=== PATIENT | female | born 1970 | race Two or more races ===

== ENCOUNTER → 2024-07-21 | Outpatient (CLI) | payer MEDICAID, SELFPAY ==
--- NOTE | 2024-07-21 15:30 | XR_ITS ---
Examination: Breast ultrasound, unilateral, right complete Date and time of exam: July 21, 2024 1349 hours INDICATIONS: Right breast pain intermittent beginning 2 years ago, history right breast cancer diagnosis 2014 post lumpectomy Technique: Real-time ball scale ultrasonographic imaging performed right breast including all 4 quadrants as well as nipple retroareolar and axillary region. Findings: No cystic or solid mass IMPRESSION: BI-RADS Category 1: Negative study Consider repeat diagnostic mammography follow-up,.
== END | disposition home or self-care (01) ==
PROVIDERS: PCP Specialist; Referring Provider Specialist; Visit Provider Specialist
DX: C50.411 Malignant neoplasm of upper-outer quadrant of right female breast (principal)
CPT/HCPCS: 76641

== ENCOUNTER 2024-11-02 11:23 | Emergency (ER) | payer MEDICAID, SELFPAY ==
[2024-11-02 11:34] VITALS: BP 135/75; PULSE 74; RESP 16; TEMP 36.7; O2SAT 100; BMI 23.8
--- NOTE | 2024-11-02 11:41 | XR_ITS ---
Examination: CT middle inner ear, without contrast. 2-D coronal reconstructions. 2-D sagittal reconstructions. Date and time of exam: November 02, 2024 1217 hours INDICATIONS: Left-sided ear pain beginning 2 weeks ago CTDI: vol (mGy): 14 DLP: (mGycm):137 Technique: Multiple 1.0 mm axial sections of the middle inner ears bilaterally. High-resolution 64 slice scanner utilized. 2-D coronal reconstructions 2-D sagittal reconstructions Low dose protocols were performed. One or more of the following dose reduction techniques were used; automated exposure control, adjustment of the mA and/or KV according to patient size, use of iterative reconstruction technique. Findings: Axial sections of the right demonstrate moderately reduced mastoid aeration. Mild acute left mastoiditis Jugular fossa and carotid canal do not appear remarkable. No deformity of the ossicles. Porus acusticus internus does not exhibit erosion. Cochlear apparatus unremarkable. Semicircular canals normal. External auditory canal open. Coronal reconstructions demonstrate no erosion of the scutum. No soft tissue mass in the attic or Prussak's space is seen. Ossicular mass intact. Axial sections of the left demonstrate moderately reduced mastoid aeration. Jugular fossa and carotid canal do not appear remarkable. No deformity of the ossicles. Porus acusticus internus does not exhibit erosion. Cochlear apparatus unremarkable. Semicircular canals normal. External auditory canal open Coronal reconstructions demonstrate no erosion of the scutum. No soft tissue mass in the attic or Prussak's space is seen. Ossicular mass intact. Roof of the mastoid air cells appear intact bilaterally. Impression: Bilateral moderate chronic mastoiditis Mild acute left mastoiditis Negative for otitis media
--- NOTE | 2024-11-02 11:41 | PD.EDRME ---
Rapid Medical Screening Exam [facility] Arrival date/time: 11/02/24 11:23 54-year-old female presents to the emergency dept complaints of left ear pain ongoing x 15 days patient reports been on 2 course of antibiotics patient reports pain persists Chief Complaint: Ear Vital signs: Vital Signs Temperature 98.0 F 11/02/24 11:34 Pulse Rate 74 11/02/24 11:34 Respiratory Rate 16 11/02/24 11:34 Blood Pressure 135/75 H 11/02/24 11:34 Pulse Oximetry (%) 100 11/02/24 11:34 Oxygen Delivery Method Room Air 11/02/24 11:34
[2024-11-02] MEDS: KETOROLAC INJ 30 MG/ML VIAL IM (12:00)
[2024-11-02 12:19] LABS: Basophils % (Auto) 1 % (0-2.5); Eosinophils # (Auto) 0.4 Thou/mm3 (0.0-0.5); Eosinophils % (Auto) 6 % (0-10); Hematocrit 38.2 % (36.0-46.0); Immature Granulocytes % (Auto) 0 % (0-0); Immature Granulocytes Auto 0.01 Thou/mm3 (0.00-0.00); Lymphocytes # (Auto) 2.9 Thou/mm3 (1.0-4.8); Lymphocytes % (Auto) 41 % (10-50); Mean Corpuscular Hemoglobin 28.6 pg (25.0-35.0); Mean Corpuscular Volume 84 fL (80-100); Monocytes # (Auto) 0.5 Thou/mm3 (0.0-0.8); Monocytes % (Auto) 6 % (0-12); Neutrophils # (Auto) 3.2 Thou/mm3 (1.8-7.7); Neutrophils % (Auto) 46 % (37-80); Nucleated Red Blood Cell % 0 /100 WBC (0); Platelet Count 297 Thou/mm3 (140-440); RDW Standard Deviation 39.7 fL (36.4-46.3); Red Blood Count 4.55 Miln/mm3 (4.00-5.20)
[2024-11-02 12:47] LABS: Alanine Aminotransferase 13 U/L (10-49); Albumin, Serum 4.4 gm/dL (3.5-5.0); Albumin/Globulin Ratio 1.6 (1.2-2.2); Alkaline Phosphatase 45 U/L (46-116); Anion Gap 8 (7-16); Aspartate Amino Transferase 18 U/L (0-34); BUN/Creatinine Ratio 18 Ratio (12-20); Bilirubin,Total 0.3 mg/dL (0.3-1.2); Blood Urea Nitrogen 14 mg/dL (9-23); C-Reactive Protein < 0.5 mg/dL (0.0-0.9); Carbon Dioxide 27.7 mMol/L (20.0-31.0); Chloride 107 mMol/L (98-107); Creatinine (Component) 0.8 mg/dL (0.6-1.3); Estimated Creatinine Clearance 73.5 mL/min (>60); Globulin 2.8 gm/dL (2.3-3.5); Glucose 89 mg/dL (74-106); Osmolality,Calculated 284 (275-295); Potassium 4.1 mMol/L (3.4-5.1); Sodium 143 mMol/L (136-145); Total Protein 7.2 gm/dL (5.7-8.2); eGFR > 60 See Note
--- NOTE | 2024-11-02 12:59 | EDNOTE_ITS ---
<Statement entered by Padmini Victor MD - 01/02/25 18:56> As co-signing physician, I was present and available for consult prn. I concur with the plan and care as documented by the midlevel provider. ED General RME/HPI General Chief complaint: Ear Stated complaint: Ear infection for 15 days Time Seen by Provider: 11/02/24 12:47 Arrival date/time: 11/02/24 11:23 54-year-old female presents to the ED with a complaint of left ear pain for the past 15 days. She has been seen and treated in her clinic twice. She received an injection of an unknown medication and on 10/27/2024 she received a prescription for Augmentin. She was taking that as prescribed but it was not helping therefore she returned to the clinic on 10/31/2024, received another injection of an unknown substance and then was prescribed Ceftin. She is taking that medication as prescribed but told to stop the Augmentin. She denies fever but has had chills. She has had nausea but no vomiting, diarrhea or abdominal pain. She denies any runny nose, ear popping but has had mild sore throat. Initially here in the ED, she received a Toradol injection of 30 mg IM. She states nothing is helping and the pain is getting worse. She is a breast cancer patient but is only receiving radiation and no chemotherapy. Mode of arrival: ambulatory Limitations: no limitations RME / HPI RME / HPI narrative: 11/02/24 11:23 54-year-old female presents to the emergency dept complaints of left ear pain ongoing x 15 days patient reports been on 2 course of antibiotics patient reports pain persists Related Data Previous Rx's ?Medication ?Instructions ?Recorded amoxicillin 875 mg-potassium 1 tab PO BID #14 tabs clavulanate 125 mg tablet fluticasone propionate 50 2 spray intranasal QDAY #16 grams 11/02/24 mcg/actuation nasal spray,suspension meloxicam 15 mg tablet 15 mg PO QDAY #10 tabs 11/02 Allergies Allergy/AdvReac Type Severity Reaction Status Date / Time NKA* Allergy Uncoded 11/02/24 11:28 Review of Systems Review of Systems Systems Reviewed: All systems reviewed, normal except as documented Past Medical History Social History SMOKING STATUS: Never smoker Past Medical History Comments PMH COMMENT: DCIS, received radiation. ED Exam Narrative Physical exam: 54-year-old female, afebrile, nontoxic-appearing, in mild acute pain distress. TMs are without erythema, pharynx with mild erythema. Canal is without erythema, edema, or discharge. No pain with pinna or tragus movement. Left mastoid area with mild tenderness. No tenderness noted to the right mastoid area. There is no erythema or warmth noted. No preauricular or anterior/posterior cervical chain adenopathy. Lungs are clear, regular rate and rhythm without murmurs. General Limitations: Present no limitations General appearance: Present alert and in distress (Appears in mild acute pain distress.) Head Head exam: Present atraumatic, normocephalic and other (Tenderness to the left mastoid area.) Eye Eye exam: Present normal appearance and EOMI; Absent conjunctival injection ENT ENT exam: Present normal external ear exam and other Course Course Course Narrative: Labs reveal a normal white count of 7.0, normal H&H, normal platelets no left shift. CMP is normal with the exception of a minimally decreased alk phos of 45. CRP is normal at less than 0.5. CT MIDDLE EAR: Impression: Bilateral moderate chronic mastoiditis. Mild acute left mastoiditis. Negative for otitis media. She was given Toradol 30 mg IM, Unasyn 3 g IM and [place] 7.5 mg p.o. She was discharged home in stable and improved condition. She was advised to follow-up with her primary care physician in 24 to 48 hours and encouraged to return to the ED for any new or worsening symptoms. Quality Measures none Orders Category Date Time Status CT ear mid-inner wo Stat Exams 11/02/24 11:41 Completed CBC Stat Lab 11/02/24 11:50 Completed CMP [Comprehensive Metabolic Panel] Stat Lab 11/02/24 11:50 Completed CRP [C-Reactive Protein] Stat Lab 11/02/24 11:50 Completed Ampicillin/Sulbac Inj [Unasyn Inj] Med 11/02/24 13:41 Discontinued 3 gm IM X1 ONE HYDROcodone*/APAP 7.5/325 [[place] 7.5/325] Med 11/02/24 14:25 Discontinued 1 tab PO X1 ONE Ketorolac Inj [Toradol Inj] Med 11/02/24 11:53 Discontinued 30 mg IM X1 ONE Vital Signs Vital signs: Vital Signs Temperature 98.0 F 11/02/24 11:34 Pulse Rate 74 11/02/24 11:34 Respiratory Rate 16 11/02/24 11:34 Blood Pressure 135/75 H 11/02/24 11:34 Pulse Oximetry (%) 100 11/02/24 11:34 Oxygen Delivery Method Room Air 11/02/24 11:34 Discharge Plan Plan Patient Disposition: HOME (Self Care) Discharge Disposition comment: Stable Prescriptions/Referrals Prescriptions/Med Rec: New fluticasone propionate 50 mcg/actuation spray,suspension 2 spray intranasal QDAY Qty: 16 0RF Rx Instructions: administer into each nostril meloxicam 15 mg tablet 15 mg PO QDAY Qty: 10 0RF amoxicillin-pot clavulanate 875-125 mg tablet 1 tab PO BID Qty: 14 0RF Referrals: Ramon Calvillo MD [Primary Care Provider] - In 1 week Problem List Clinical Impression: Mastoiditis, chronic Patient/Caregiver Discharge Instructions Education Materials: Common Middle Ear Problems Additional Instructions: Follow-up with your primary care physician in 24 to 48 hours. Return to the ED for any new or worsening symptoms. Print Language: Hungarian Stand Alone Forms: [employer] Award Info., Patient Portal Info Letter PA/HEAD OPERATOR SULFIDE Supervising Physician PA/HEAD OPERATOR SULFIDE Supervising Physician: Dr. Victor MDM Narrative [facility] hospital course (for use when minimal MDM required): 54-year-old female presents to the ED with a complaint of left ear pain for the past 15 days. She has been seen and treated in her clinic twice. She received an injection of an unknown medication and on 10/27/2024 she received a prescription for Augmentin. She was taking that as prescribed but it was not helping therefore she returned to the clinic on 10/31/2024, received another injection of an unknown substance and then was prescribed Ceftin. She is taking that medication as prescribed but told to stop the Augmentin. She denies fever but has had chills. She has had nausea but no vomiting, diarrhea or abdominal pain. She denies any runny nose, ear popping but has had mild sore throat. Initially here in the ED, she received a Toradol injection of 30 mg IM. She states nothing is helping and the pain is getting worse. She is a breast cancer patient but is only received radiation and no chemotherapy. 54-year-old female, afebrile, nontoxic-appearing, in mild acute pain distress. TMs are without erythema, pharynx with mild erythema. Canal is without erythema, edema, or discharge. No pain with pinna or tragus movement. Left mastoid area with mild tenderness. No tenderness noted to the right mastoid area. There is no erythema or warmth noted. No preauricular or anterior/posterior cervical chain adenopathy. Lungs are clear, regular rate and rhythm without murmurs. Labs reveal a normal white count of 7.0, normal H&H, normal platelets no left shift. CMP is normal with the exception of a minimally decreased alk phos of 45 . CRP is normal at less than 0.5. CT MIDDLE EAR: Impression: Bilateral moderate chronic mastoiditis. Mild acute left mastoiditis. Negative for otitis media. She was given Toradol 30 mg IM, Unasyn 3 g IM and [place] 7.5 mg p.o. She was discharged home in stable and improved condition. She was advised to follow-up with her primary care physician in 24 to 48 hours and encouraged to return to the ED for any new or worsening symptoms. Clinical Information Provided by: patient Medical Records reviewed [facility] Meds/Rx considered, not ordered None Labs/Rad/Tests considered, not ordered None Chronic Illness/Social Conditions which may negatively complicate care or outcome(s)-explain: Cancer EKG EKG not done Labs Labs: Interpreted by nd Lab(s) Interpretation(s): Labs reveal a normal white count of 7.0, normal H&H, normal platelets no left shift. CMP is normal with the exception of a minimally decreased alk phos of 45 CRP is normal at less than 0.5. Imaging Imaging Interpretation(s): CT MIDDLE EAR: Impression: Bilateral moderate chronic mastoiditis Mild acute left mastoiditis Negative for otitis media Medication Administration(s) Medication Administration History Discontinued Medications Hydrocodone Bitart/Acetaminophen (Hydrocodone/Apap 7.5/325 Tablet) 1 tab PO X1 ONE Stop: 11/02/24 14:26 Last Admin: 11/02/24 14:29 Dose: 1 tab Documented By: LT Ampicillin Sodium/Sulbactam Sodium (Ampicillin/Sulbac Inj 3 Gm Vial) 3 gm IM X1 ONE Stop: 11/02/24 13:42 Last Admin: 11/02/24 14:05 Dose: 3 gm Documented By: LT Ketorolac Tromethamine (Ketorolac Inj 30 Mg/Ml Vial) 30 mg IM X1 ONE Stop: 11/02/24 11:54 Last Admin: 11/02/24 12:00 Dose: 30 mg Documented By: VANESSA As noted above Diagnosis Differential Diagnosis ED Complaint MDM: Otitis media, otitis externa, mastoiditis
[2024-11-02 13:10] VITALS: BP 134/81; PULSE 68; RESP 18; TEMP 36.7; O2SAT 99
[2024-11-02] MEDS: AMPICILLIN/SULBAC INJ 3 GM VIAL IM (14:05)
[2024-11-02] MEDS: HYDROcodone/APAP 7.5/325 TABLET 1 TAB PO (14:29)
== END 2024-11-02 14:37 | disposition home or self-care (01) ==
PROVIDERS: Nurse Practitioner Primary Care; Emergency Provider Emergency Medicine; PCP Family Medicine
DX: H70.13 Chronic mastoiditis, bilateral (principal); H70.002 Acute mastoiditis without complications, left ear
CPT/HCPCS: 36415; 70480; 80053; 85025; 86140; 96372; 99284; J0295; J1885; A9270

== ENCOUNTER → 2025-06-13 | Outpatient (CLI) | payer MEDICAID, SELFPAY ==
--- NOTE | 2025-06-13 14:00 | XR_ITS ---
Examination: Diagnostic digital mammography, bilateral Computer aided detection 3-D breast Tomosynthesis, bilateral Date and time of exam: June 13, 2025, 1335 hours Compared with mammograms dating to June 21, 2019 INDICATIONS: Right breast pain beginning 3 months ago Technique: Nonmagnified MLO, CC views of the breasts to been obtained, reconstructed from 3-D Tomosynthesis images. R2 computer aided detection program utilized for evaluation of suspicious masses and/or abnormal calcifications. 3-D Tomosynthesis images obtained. Findings: Scattered areas of fibroglandular density. Scar formation right breast consistent with patient's history right breast cancer lumpectomy No interval suspicious masses Impression: BI-RADS Category 2: Benign findings Recommend yearly follow-up mammography.
== END | disposition home or self-care (01) ==
LOC: CDIM 13:26
PROVIDERS: Referring Provider Specialist; Visit Provider Specialist
DX: R92.323 Mammographic fibroglandular density, bilateral breasts (principal); C50.411 Malignant neoplasm of upper-outer quadrant of right female breast
CPT/HCPCS: 77062; 77066; G0279